=== PATIENT | male | born 1970 | race Caucasian/White ===

== ENCOUNTER 2020-12-07 10:51 | Emergency (ER) | payer BC, SELFPAY ==
--- NOTE | ~2020-12-07 | XR_ITS ---
XR knee RT min 4V 12/07/2020 11:22 INDICATION: Right knee pain PROCEDURE: 4 views right knee COMPARISON: No prior studies for comparison. FINDINGS: Fracture, dislocation or subluxation is not identified. Moderate joint effusion. The soft t issues appear within normal limits. No foreign bodies are identified. IMPRESSION: 1: No acute fracture. 2: Moderate joint effusion. Reviewed, dictated and finalized at location A.
[2020-12-07 11:04] VITALS: BP 144/93; PULSE 105; RESP 20; TEMP 36.4; O2SAT 100
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
[2020-12-07] MEDS: HYDROcodone/acetaminophen (*CRX) 5-325 MG TABLET 1 TAB PO (11:46)
== END 2020-12-07 12:20 | disposition home or self-care (01) ==
PROVIDERS: Emergency Provider Emergency Medicine; PCP Family Medicine Sports Medicine
DX: S83.91XA Sprain of unspecified site of right knee, initial encounter (principal); V28.4XXA Motorcycle driver injured in noncollision transport accident in traffic accident, initial encounter
CPT/HCPCS: 73564; 99283; A9270